=== PATIENT | male | born 1975 | race Caucasian/White ===

== ENCOUNTER → 2018-05-27 04:38 | Emergency (ER) | payer BC, OTHER ==
[~2018-05-27 04:38] MED LIST: Lidocaine 2% EPI 1:200000 MPF*10-20 ML VIAL ONE; Tetan/Diph/Pertus SYR(Tdap)* 0.5 ML SYR(BOOSTRIX) use SYR IM ONE
--- NOTE | 2018-05-27 05:04 | ED ---
Laceration/Wound HPI - HPI Summary HPI Summary: This patient is a 42 year old M presenting to ED with a chief complaint of L forehead laceration since 334. The patient reports he accidentally hit his head against a piece of steel at work. Bleeding is controlled at this time. Unknown last tetanus shot. The patient rates the pain 4/10 in severity. Symptoms aggravated by nothing. Symptoms alleviated by nothing. - History of Current Complaint Stated Complaint: HEAD LAC Time Seen by Provider: 05/27/18 04:54 Hx Obtained From: Patient Onset/Duration: Sudden Onset, Lasting Hours - since 334, Still Present Aggravating: Nothing Alleviating: Nothing Onset Severity: Moderate Current Severity: Moderate Pain Intensity: 4 Pain Scale Used: 0-10 Numeric - Allergy/Home Medications Allergies/Adverse Reactions: Allergies Allergy/AdvReac Type Severity Reaction Status Date / Time No Known Allergies Allergy Verified 05/27/18 04:42 PMH/Surg Hx/FS Hx/Imm Hx Infectious Disease History: No Infectious Disease History: Denies: Traveled Outside the [place] in Last 30 Days Review of Systems Negative: Fever Positive: Other - laceration to L forehead All Other Systems Reviewed And Are Negative: Yes Physical Exam - Summary Physical Exam Summary: VITAL SIGNS: Reviewed. GENERAL: Patient is a well-developed and nourished MALE who is lying comfortable in the stretcher. Patient is not in any acute respiratory distress. HEAD AND FACE: No signs of trauma. No ecchymosis, hematomas or skull depressions. No sinus tenderness. EYES: PERRLA, EOMI x 2, No injected conjunctiva, no nystagmus. EARS: Hearing grossly intact. Ear canals and tympanic membranes are within normal limits. MOUTH: Oropharynx within normal limits. NECK: Supple, trachea is midline, no adenopathy, no JVD, no carotid bruit, no c- spine tenderness, neck with full ROM. CHEST: Symmetric, no tenderness at palpation LUNGS: Clear to auscultation bilaterally. No wheezing or crackles. CVS: Regular rate and rhythm, S1 and S2 present, no murmurs or gallops appreciated. ABDOMEN: Soft, non-tender. No signs of distention. No rebound no guarding, and no masses palpated. Bowel sounds are normal. EXTREMITIES: FROM in all major joints, no edema, no cyanosis or clubbing. NEURO: Alert and oriented x 3. No acute neurological deficits. Speech is normal and follows commands. SKIN: Dry and warm. 5 cm laceration to L forehead. Triage Information Reviewed: Yes Vital Signs On Initial Exam: Initial Vitals Temp Pulse Resp BP Pulse Ox 98.7 F 71 16 148/98 98 05/27/18 04:40 05/27/18 04:40 05/27/18 04:40 05/27/18 04:40 05/27/18 04:40 Vital Signs Reviewed: Yes Procedures - Laceration/Wound Repair 1 Location: head - L forehead Description: Linear Anesthesia: 2.0%, Lido, Epi Laceration/Wound Explored: clean Closure: [place] #__ - 11 Suture Type: Nylon - 5-0 Number of Sutures: 11 Diagnostics - Vital Signs Vital Signs Temp Pulse Resp BP Pulse Ox 05/27/18 04:40 98.7 F 71 16 148/98 98 - Laboratory Lab Statement: Any lab studies that have been ordered have been reviewed, and results considered in the medical decision making process. Laceration Repair Course/Dx - Course Assessment/Plan: This patient is a 42 year old M presenting to ED with a chief complaint of L forehead laceration since 334. Refer to laceration procedure note. The patient will be discharged with dx of forehead laceration. Patient was instructed to get stitches out in 10 days. Patient understands and agrees. - Differential Dx Differental Diagnoses: Other - forehead laceration - Clinical Impression Provider Diagnoses: Forehead laceration Discharge - Sign-Out/Discharge Documenting (check all that apply): Patient Departure - discharge Patient Received Moderate/Deep Sedation with Procedure: No - Discharge Plan Condition: Stable Disposition: HOME Patient Education Materials: Care For Your Stitches (ED), Facial Laceration (ED ) Referrals: Shaheed Tejada MD [Primary Care Provider] - (Follow up in 1-2 days. Remove stitches in 10 days.) Additional Instructions: RETURN TO THE EMERGENCY DEPARTMENT FOR CHANGING OR WORSENING SYMPTOMS. FOLLOW UP WITH PCP IN 1-2 DAYS. Remove stitches in 10 days. - Attestation Statements Document Initiated by Scribe: Yes Documenting Scribe: Aayush Mes[place] Provider For Whom Scribe is Documenting (Include Credential): Keaton Pelletier MD Scribe Attestation: Aayush Kenney, scribed for Keaton Pelletier MD on 05/27/18 at 0500. Status of Scribe Document: Ready
[2018-05-27 05:43] VITALS: BP 0/0
== END | disposition home or self-care (01) ==
LOC: ED 04:38
DX: S01.81XA Laceration without foreign body of other part of head, initial encounter (principal); W22.8XXA Striking against or struck by other objects, initial encounter; Y92.9 Unspecified place or not applicable; Y99.0 Civilian activity done for income or pay; Z23 Encounter for immunization
CPT/HCPCS: 12013; 90471; 90715; 99282